=== PATIENT | female | born 1990 | race African-American/Black ===

== ENCOUNTER 2017-03-17 21:00 | Emergency (ER) | payer MEDICAID ==
[~2017-03-17] VITALS: Ht 172.7 cm; Wt 91.0 kg
[2017-03-17] MEDS ORDERED: SODIUM CHLORIDE 0.9% 1,000 ML IV ONE (23:08)
[2017-03-18 00:12] LABS: BASOPHILS % 0.9 % (0.0-2.0); EOSINOPHILS % 1.7 % (0.0-5.0); HEMATOCRIT. 35.2 % (36.0-48.0); HEMOGLOBIN. 12.1 g/dL (12.0-16.0); LYMPHOCYTES % 38.1 % (20.0-50.0); MEAN CORPUSCULAR HEMOGLOBIN 29.2 pg (28.0-32.0); MEAN PLATELET VOLUME 9.8 fl (7.4-10.4); MONOCYTES % 10.5 % (2.0-8.0); NEUTROPHILS % 48.8 % (40.0-76.0); PLATELET 310 x1000/uL (130-400); RED BLOOD CELL COUNT 4.14 mill/uL (4.2-5.4); RED CELL DISTRIBUTION WIDTH 13.1 % (11.6-14.6)
[2017-03-18 00:16] LABS: CHLORIDE 106 mEq/L (98-107)
[2017-03-18 00:17] LABS: HCG SCREEN NEGATIVE
[2017-03-18 00:31] LABS: CARBON DIOXIDE 25 mEq/L (21-32)
[2017-03-18] MEDS ORDERED: MORPHINE SULFATE 4 MG/ML CPJ (NOT FOR IM USE) IV ONE (02:30)
[2017-03-18] MEDS ORDERED: ONDANSETRON HCL 4MG/2ML VIAL IV ONE (02:30)
[2017-03-18] MEDS ORDERED: KETOROLAC 30MG/ML VIAL IV ONE (03:30)
[2017-03-18 05:00] VITALS: BP 111/69
[2017-03-18] MEDS ORDERED: IOHEXOL-350 100 ML BOTTLE ONE (13:02)
[2017-03-18] MEDS ORDERED: SODIUM CHLORIDE 0.9% 10ML VIAL ONE (13:02)
== END 2017-03-18 05:00 | disposition home or self-care (01) ==
LOC: ER 21:04
DX: R51 Headache (principal); M54.9 Dorsalgia, unspecified; I10 Essential (primary) hypertension; F31.9 Bipolar disorder, unspecified; F20.9 Schizophrenia, unspecified; V43.52XA Car driver injured in collision with other type car in traffic accident, initial encounter; Y93.89 Activity, other specified; Y92.411 Interstate highway as the place of occurrence of the external cause
CPT/HCPCS: 36415; 70450; 71260; 72125; 74177; 80053; 84703; 85025; 96361; 96374; 96375; 99285; A4216; J1885; J2270; J2405; J7030; Q9967; Z7610